=== PATIENT | female | born 1990 | race Caucasian/White ===

== ENCOUNTER 2021-08-06 07:53 | Day surgery (SDC) | payer BC ==
[~2021-08-06 07:53] MED LIST: Glycopyrrolate 0.2 MG/ML SDV ONE; Ketorolac 30 MG/ML SDV ONE; Lactated Ringers 1,000 ML IV SCH; Lidocaine 2% 5 ML SDV ONE; Methylergonovine 0.2 MG/1 ML Amp ONE; Midazolam 1 MG/ML 2 ML SDV ONE; Ondansetron 4 MG/2 ML SDV ONE; Propofol 200 MG/20 ML SDV ONE; fentaNYL 100 MCG/2 ML SDV ONE
[2021-08-06] MEDS ORDERED: Methylergonovine 0.2 MG/1 ML Amp ONE (08:29)
[2021-08-06] MEDS ORDERED: Misoprostol 200 MCG Tab ONE (08:29)
--- NOTE | 2021-08-06 08:31 | PCM.PREANE ---
Preanesthetic Assessment - Procedure Proposed Procedure: D&C - Anesthesia/Transfusion/Family Hx Anesthesia History: Prior Anesthesia Without Reaction Family History of Anesthesia Reaction: No Transfusion History: No Prior Transfusion(s) - Review of Systems General: No Symptoms Pulmonary: No Symptoms Cardiovascular: No Symptoms (HTN) Gastrointestinal: No Symptoms Neurological: No Symptoms Other: Reports: None - Physical Assessment NPO Status Date: 08/05/21 NPO Status Time: 22:30 Height: 5 ft 7 in Weight: 122.016 kg (Morbid Obesity) ASA Class: 3 Mental Status: Alert & Oriented x3 Airway Class: Mallampati = 4 Dentition: Reports: Normal Dentition Thyro-Mental Finger Breadths: 3 Mouth Opening Finger Breadths: 3 ROM/Head Extension: Full Lungs: Clear to Auscultation, Normal Respiratory Effort Cardiovascular: Regular Rate, Regular Rhythm - Allergies Allergies/Adverse Reactions: Allergies Allergy/AdvReac Type Severity Reaction Status Date / Time No Known Allergies Allergy Verified 08/04/21 08:30 - Acknowledgements Anesthesia Type Planned: General Anesthesia Pt an Appropriate Candidate for the Planned Anesthesia: Yes Alternatives and Risks of Anesthesia Discussed w Pt/Guardian: Yes Pt/Guardian Understands and Agrees with Anesthesia Plan: Yes PreAnesthesia Questionnaire HEENT History: Reports: Other (See Below) Other HEENT History: wears glasses Cardiovascular History: Reports: Hypertension Respiratory History: Reports: None Gastrointestinal History: Reports: None Genitourinary History: Reports: None [employer] History: Reports: Polycystic Ovaries Musculoskeletal History: Reports: Fracture Neurological History: Reports: None Psychiatric History: Reports: None Endocrine/Metabolic History: Reports: Obesity/BMI 30+ Hematologic History: Reports: None Immunologic History: Reports: None Oncologic (Cancer) History: Reports: None Dermatologic History: Reports: Psoriasis Other Dermatologic History: psoriasis of scalp - Past Surgical History Head Surgeries/Procedures: Reports: None HEENT Surgical History: Reports: None Cardiovascular Surgical History: Reports: None Respiratory Surgical History: Reports: None GI Surgical History: Reports: None Female Surgical History: Reports: None Endocrine Surgical History: Reports: None Neurological Surgical History: Reports: None Musculoskeletal Surgical History: Reports: ORIF Other Musculoskeletal Surgeries/Procedures:: ORIF fx left arm Oncologic Surgical History: Reports: None Dermatological Surgical History: Reports: None - SUBSTANCE USE Tobacco Use Status *Q: Never Tobacco User - HOME MEDS Home Medications: Home Meds Cholecalciferol (Vitamin D3) [Vitamin D3] 1,000 units PO DAILY 08/04/21 [History] Labetalol HCl [Labetalol] 100 mg PO QPM 08/04/21 [History] Labetalol [Normodyne] 200 mg PO QAM 08/04/21 [History] Pnv No.95/Ferrous Fum/Folic AC [ Vitamin Tablet] 1 tab PO DAILY 08/04/21 [History] metFORMIN HCl [Metformin HCl] 1,000 mg PO QPM 08/04/21 [History] metFORMIN HCl [Metformin HCl] 500 mg PO QAM 08/04/21 [History] - CURRENT (IN HOUSE) MEDS Current Meds: Current Medications Lactated Ringer's (Ringers, Lactated) 1,000 mls @ 125 mls/hr IV ASDIRECTED SAVITA Discontinued Medications Fentanyl (Fentanyl 100 Mcg/2 Ml Sdv) Confirm Administered Dose 100 mcg .ROUTE .STK-MED ONE Stop: 08/06/21 06:53 Glycopyrrolate (Glycopyrrolate 0.2 Mg/Ml Sdv) Confirm Administered Dose 0.2 mg .ROUTE .STK-MED ONE Stop: 08/06/21 06:54 Ketorolac Tromethamine (Ketorolac 30 Mg/Ml Sdv) Confirm Administered Dose 30 mg .ROUTE .STK-MED ONE Stop: 08/06/21 06:54 Lidocaine (Lidocaine 2% 5 Ml Sdv) Confirm Administered Dose 5 ml .ROUTE .STK-MED ONE Stop: 08/06/21 06:54 Methylergonovine Maleate (Methylergonovine 0.2 Mg/1 Ml Amp) Confirm Administered Dose 0.2 mg .ROUTE .STK-MED ONE Stop: 08/06/21 07:29 Midazolam HCl (Midazolam 1 Mg/Ml 2 Ml Sdv) Confirm Administered Dose 2 mg .ROUTE .STK-MED ONE Stop: 08/06/21 06:53 Ondansetron HCl (Ondansetron 4 Mg/2 Ml Sdv) Confirm Administered Dose 4 mg .ROUTE .STK-MED ONE Stop: 08/06/21 06:54 Propofol (Propofol 200 Mg/20 Ml Sdv) Confirm Administered Dose 200 mg .ROUTE .STK-MED ONE Stop: 08/06/21 06:53 Propofol (Propofol 200 Mg/20 Ml Sdv) Confirm Administered Dose 200 mg .ROUTE .[facility]-MED ONE Stop: 08/06/21 07:30
[2021-08-06] MEDS ORDERED: Naloxone 0.4 MG/ML SDV IVPUSH PRN (08:43)
[2021-08-06] MEDS ORDERED: Albuterol 0.083% 2.5 MG/3 ML Neb Soln NEB PRN (08:43)
[2021-08-06] MEDS ORDERED: Metoclopramide 10 MG/2 ML SDV IVPUSH PRN (08:43)
[2021-08-06] MEDS ORDERED: Ondansetron 4 MG/2 ML SDV IVPUSH PRN (08:43)
[2021-08-06] MEDS ORDERED: HYDROmorphone 1 MG/ML Syringe IVPUSH PRN (08:43)
[2021-08-06] MEDS ORDERED: fentaNYL 100 MCG/2 ML SDV IVPUSH PRN (08:43)
[2021-08-06] MEDS ORDERED: Propofol 200 MG/20 ML SDV ONE (08:49)
--- NOTE | 2021-08-06 09:24 | PCM.POSTAN ---
POST ANESTHESIA ASSESSMENT - MENTAL STATUS Mental Status: Alert, Oriented - VITAL SIGNS Vital Signs: Last Vital Signs Temp 97.2 F 08/06/21 08:22 Pulse 80 08/06/21 08:22 Resp 15 08/06/21 08:22 BP 137/86 08/06/21 08:22 Pulse Ox 97 08/06/21 08:22 - RESPIRATORY Respiratory Status: Respiratory Rate WNL, Airway Patent, O2 Saturation Stable - CARDIOVASCULAR CV Status: Pulse Rate WNL, Blood Pressure Stable - GASTROINTESTINAL GI Status: No Symptoms - PAIN Pain Score: 3 - POST OP HYDRATION Hydration Status: Adequate & Stable
--- NOTE | 2021-08-06 09:31 | PCM.OPNOTE ---
- General Post-Op/Procedure Note Date of Surgery/Procedure: 08/06/21 Operative Procedure(s): Suction dilation and curettage Findings: Anteverted uterus with small gestational sac noted on bedside ultrasound. Sounded to 8cm. Pre Op Diagnosis: 6 week missed Post-Op Diagnosis: 6 week missed Anesthesia Technique: General ET Tube Primary Surgeon: Erin Silva Anesthesia Provider: Claudio Thomson Pathology: Products of conception for gross and chromosomal analysis Fluid Replacement, Intraop: 500 Output, Urine Amount: 400 EBL in mLs: 10 Complications: None known Condition: Good Free Text/Narrative:: Dictation #[id number]
--- NOTE | 2021-08-06 09:36 | PCM48HPAN ---
Post Anesthesia Note - EVALUATION WITHIN 48HRS OF ANESTHETIC Vital Signs in Normal Range: Yes Patient Participated in Evaluation: Yes Respiratory Function Stable: Yes Airway Patent: Yes Cardiovascular Function Stable: Yes Hydration Status Stable: Yes Pain Control Satisfactory: Yes Nausea and Vomiting Control Satisfactory: Yes Mental Status Recovered: Yes Vital Signs: Last Vital Signs Temp 98.8 F 08/06/21 09:17 Pulse 84 08/06/21 09:33 Resp 13 08/06/21 09:33 BP 129/80 08/06/21 09:33 Pulse Ox 94 L 08/06/21 09:33 - COMMENTS/OBSERVATIONS Free Text/Narrative:: Pt doing well post-op. VSS. No apparent anesthetic complications. Dr. Claudio Thomson
--- NOTE | 2021-08-06 12:35 | OR ---
SURGEON: WILLIAM SILVA MD DATE OF PROCEDURE: 08/06/2021 PREOPERATIVE DIAGNOSIS: Six-week missed . POSTOPERATIVE DIAGNOSIS: Six-week missed . PROCEDURE: Suction dilation and curettage. PRIMARY SURGEON: William Silva MD ANESTHESIOLOGIST: Dr. Alex Thomson. ANESTHESIA: General endotracheal. COMPLICATIONS: None known. ESTIMATED BLOOD LOSS: 10 mL. IV FLUIDS: 500 mL of crystalloid. URINE OUTPUT: 400 mL straight cath prior to the procedure. FINDINGS: Anteverted uterus with small gestational sac noted on bedside ultrasound. Sounded to 8 cm. PATHOLOGY: Products of conception. INDICATION FOR PROCEDURE: Patient is a 31-year-old, 1, para 0-0-1-0 female with polycystic ovarian syndrome. She achieved a after ovulation and induction with intrauterine insemination. However, a missed was noted as the patient presented for her nine-week OB appointment with a gestational sac measuring five weeks five days and no pole noted. She initially elected for medical management and received vaginal Cytotec. However, retained products of conception were then noted on ultrasound earlier this week. Patient desired definitive treatment with dilation and curettage. PROCEDURE IN DETAIL: Patient was taken to the operating room where anesthesia was introduced. She was then prepped and draped in the dorsal lithotomy position. A time-out was held. A bedside ultrasound was then performed and a small gestational sac noted in the lower uterine segment. An open-sided Graves speculum was then inserted into the vagina to visualize the cervix. The cervix was then grasped at 12 o'clock with a long Allis. The cervix was then serially dilated to an 8 Hegar and a #7 curved suction curette was gently advanced to the fundus. Upon measurement, the uterus sounded to 8 cm. The suction curette was then attached to suction and rotated to clear the uterus of products of conception. This was repeated two additional times. A sharp curettage was then performed with until a gritty texture was noted. The suction curettage was then performed once more. Minimal bleeding was noted. The Allis was then removed with good hemostasis. All instruments were then removed from the vagina. The patient tolerated the procedure well. Sponge, lap, and needle count were correct x2. The patient was taken back to Recovery in stable condition. MARORAC / MODL /[id number] MTDYoana
== END 2021-08-06 10:00 | disposition home or self-care (01) ==
LOC: MW.SDS 07:53
PROVIDERS: ATTEND Obstetrics & Gynecology
DX: O02.1 Missed abortion (principal); I10 Essential (primary) hypertension; E66.9 Obesity, unspecified; E55.9 Vitamin D deficiency, unspecified; Z79.899 Other long term (current) drug therapy; Z98.890 Other specified postprocedural states; Z68.41 Body mass index [BMI] 40.0-44.9, adult
CPT/HCPCS: 59820; 76998; A9270; J1885; J2250; J2370; J2704; J3490; J7120; 01965; J2210; J2405; J3010

== ENCOUNTER 2023-01-24 17:08 | Inpatient (IN) | payer BC ==
[2023-01-24] MEDS ORDERED: Carboprost Tromethamine 250 MCG/1 ML Amp IM PRN (17:47)
[2023-01-24] MEDS ORDERED: Tranexamic Acid 1,000 MG in Sodium Chloride 0.9% 100 ML IV PRN (17:47)
[2023-01-24] MEDS ORDERED: Lidocaine 1% 50 ML MDV INJECT PRN (17:47)
[2023-01-24] MEDS ORDERED: Misoprostol 200 MCG Tab PO PRN (17:47)
[2023-01-24] MEDS ORDERED: Sodium Chloride 0.9% 10 ML Syringe FLUSH PRN (17:47)
[2023-01-24] MEDS ORDERED: Sodium Chloride 0.9% 2.5 ML Syringe FLUSH PRN (17:47)
[2023-01-24] MEDS ORDERED: Terbutaline 1 MG/ML SDV SUBCUT PRN (17:47)
[2023-01-24] MEDS ORDERED: Water For Irrigation,Sterile 1,000 ML Container IRR PRN (17:47)
[2023-01-24] MEDS ORDERED: Sodium Chloride 0.9% 20 ML SDV IV PRN (17:47)
[2023-01-24] MEDS ORDERED: Misoprostol 25 MCG (1/4 of 100 MCG) Tab VAG PRN ×2 (17:47)
[2023-01-24] MEDS ORDERED: Butorphanol 1 MG/ML SDV IVPUSH PRN (17:47)
[2023-01-24] MEDS ORDERED: Methylergonovine 0.2 MG/1 ML Amp IM PRN (17:47)
[2023-01-24] MEDS ORDERED: Lactated Ringers 1,000 ML IV SCH (18:00)
[2023-01-24] MEDS ORDERED: Oxytocin/0.9 % Sodium Chloride 30 UNIT/500 ML BAG IV SCH ×2 (18:00)
[2023-01-24] MEDS: Misoprostol 25 MCG (1/4 of 100 MCG) Tab VAG SCH (23:06)
[2023-01-25] MEDS: Misoprostol 25 MCG (1/4 of 100 MCG) Tab VAG SCH (03:20)
[2023-01-25] MEDS ORDERED: Terbutaline 1 MG/ML SDV SUBCUT PRN (05:02)
[2023-01-25] MEDS: Oxytocin/0.9 % Sodium Chloride 30 UNIT/500 ML BAG IV SCH (07:49)
[2023-01-25] MEDS ORDERED: Magnesium Sulfate/Water 4 GM in Premix Bag 1 BAG IV ONE (14:00)
[2023-01-25] MEDS ORDERED: Sodium Chloride 0.9% 20 ML SDV IV PRN (14:00)
[2023-01-25] MEDS ORDERED: Sodium Chloride 0.9% 10 ML Syringe FLUSH PRN (14:00)
[2023-01-25] MEDS ORDERED: Calcium Gluconate 10% 1 GM/10 ML SDV IV PRN (14:00)
[2023-01-25] MEDS ORDERED: Sodium Chloride 0.9% 2.5 ML Syringe FLUSH PRN (14:00)
[2023-01-25] MEDS ORDERED: Labetalol 100 MG/20 ML MDV ONE (14:08)
[2023-01-25] MEDS: Labetalol 100 MG/20 ML MDV IVPUSH ONE (14:17)
[2023-01-25] MEDS ORDERED: Sodium Chloride 0.9% 150 ML Bag IV SCH (14:45)
[2023-01-25 14:47] LABS: CARBON DIOXIDE,CO2 22.9 mmol/L (21.0-32.0); POTASSIUM,K 4.1 mmol/L (3.5-5.1)
[2023-01-25] MEDS: Magnesium Sulfate/Water 20 GM/500 ML BAG IV SCH (14:49)
[2023-01-25] MEDS ORDERED: Sodium Chloride 0.9% 1,000 ML IV SCH (15:00)
[2023-01-25] MEDS ORDERED: Bupivacaine 0.5% 10 ML SDV ONE (15:55)
[2023-01-25] MEDS ORDERED: Ropivacaine/PF 400 MG/200 ML PCA ONE (15:55)
[2023-01-25] MEDS ORDERED: Phenylephrine HCl 0.5 MG/5 ML AMP IVPUSH PRN (16:23)
[2023-01-25] MEDS ORDERED: ePHEDrine 50 MG/ML SDV IVPUSH PRN ×2 (16:23)
[2023-01-25] MEDS ORDERED: Ropivacaine HCl/PF 400 MG in Premix Bag 1 BAG EPIDUR SCH (16:30)
[2023-01-25] MEDS ORDERED: Labetalol 100 MG Tab PO SCH ×2 (21:00)
[2023-01-25] MEDS: LABETALOL 100 MG PO SCH (22:08)
[2023-01-26] MEDS: Magnesium Sulfate/Water 20 GM/500 ML BAG IV SCH ×2 (01:13→12:13)
[2023-01-26] MEDS: Labetalol 100 MG/20 ML MDV IVPUSH ONE (07:20)
[2023-01-26] MEDS: Oxytocin/0.9 % Sodium Chloride 30 UNIT/500 ML BAG IV SCH (07:23)
[2023-01-26] MEDS ORDERED: Labetalol 100 MG Tab PO SCH (09:00)
[2023-01-26] MEDS: LABETALOL 100 MG PO SCH ×2 (09:55→21:06)
[2023-01-26] MEDS ORDERED: Ibuprofen 400 MG Tab PO PRN (09:59)
[2023-01-26] MEDS ORDERED: oxyCODONE 5 MG Tab PO PRN (09:59)
[2023-01-26] MEDS ORDERED: Acetaminophen 500 MG Tab PO PRN (09:59)
[2023-01-26] MEDS ORDERED: Benzocaine/Menthol 20%-0.5% Spray 78 GM Cannister TOP PRN (09:59)
[2023-01-26] MEDS ORDERED: Witch Hazel Medicated Pads 40/Jar TOP PRN (09:59)
[2023-01-26] MEDS ORDERED: Lanolin 100% Cream 7 GM Tube TOP PRN (09:59)
[2023-01-26] MEDS ORDERED: Bisacodyl 10 MG Supp RECTAL PRN (09:59)
[2023-01-26] MEDS: Docusate Sodium 100 MG Cap PO PRN (12:14)
[2023-01-26] MEDS: Acetaminophen 500 MG Tab PO PRN (12:14)
[2023-01-26] MEDS: Ibuprofen 800 MG Tab PO PRN ×2 (12:15→21:13)
[2023-01-27] MEDS: Ibuprofen 800 MG Tab PO PRN ×2 (08:07→21:54)
[2023-01-27] MEDS: Docusate Sodium 100 MG Cap PO PRN (08:07)
[2023-01-27] MEDS: Acetaminophen 500 MG Tab PO PRN ×2 (08:08→13:43)
[2023-01-27] MEDS: LABETALOL 100 MG PO SCH ×2 (09:30→18:40)
[2023-01-28] MEDS: Docusate Sodium 100 MG Cap PO PRN (07:57)
[2023-01-28] MEDS: Acetaminophen 500 MG Tab PO PRN (07:57)
[2023-01-28] MEDS: LABETALOL 100 MG PO SCH (09:37)
== END 2023-01-28 15:30 | disposition home or self-care (01) | DRG 560 ==
LOC: MW.OBCHECK 17:08 → MW.OB 17:09 → MW.OBCHECK 17:48 → MW.OB 17:51 → OBSVTOIN 01-26 09:27 → MW.OB 01-26 12:42
PROVIDERS: ADMIT Obstetrics & Gynecology; ATTEND Obstetrics & Gynecology
PROC: 10E0XZZ Delivery of Products of Conception, External Approach (ICD-10-PCS; principal; 2023-01-26)
PROC: 0KQM0ZZ Repair Perineum Muscle, Open Approach (ICD-10-PCS; 2023-01-26)
PROC: 3E0P7VZ Introduction of Hormone into Female Reproductive, Via Natural or Artificial Opening (ICD-10-PCS; 2023-01-26)
PROC: 3E0R3BZ Introduction of Anesthetic Agent into Spinal Canal, Percutaneous Approach (ICD-10-PCS; 2023-01-26)
PROC: 00HU33Z Insertion of Infusion Device into Spinal Canal, Percutaneous Approach (ICD-10-PCS; 2023-01-26)
DX: O11.4 Pre-existing hypertension with pre-eclampsia, complicating childbirth (principal); O10.92 Unspecified pre-existing hypertension complicating childbirth; Z3A.39 39 weeks gestation of pregnancy; Z37.0 Single live birth; O99.214 Obesity complicating childbirth; O70.1 Second degree perineal laceration during delivery
CPT/HCPCS: 01967; 36415; 51702; 80053; 82803; 83735; 85014; 85018; 85027; 86592; 86850; 86900; 86901; A9270-GY; J2590; J2795; J3475; J3490; J7030; J7120

== ENCOUNTER 2023-01-31 23:22 | Emergency (ER) | payer BC ==
[2023-01-31] MEDS ORDERED: Sodium Chloride 0.9% 2.5 ML Syringe FLUSH PRN (23:32)
[2023-01-31] MEDS ORDERED: Sodium Chloride 0.9% 10 ML Syringe FLUSH PRN (23:32)
[2023-01-31] MEDS ORDERED: Labetalol 100 MG/20 ML MDV IVPUSH ONE (23:39)
[2023-02-01 00:16] LABS: CARBON DIOXIDE,CO2 24.4 mmol/L (21.0-32.0)
== END 2023-02-01 00:42 | disposition home or self-care (01) ==
LOC: MW.ED 23:22
DX: O10.93 Unspecified pre-existing hypertension complicating the puerperium (principal); O99.215 Obesity complicating the puerperium
CPT/HCPCS: 36415; 80053; 81001; 85025; 87086; 96374; 99283; J3490; 99284